=== PATIENT | female | born 1975 | race Caucasian/White ===

== ENCOUNTER → 2018-11-08 | Outpatient (CLI) | payer BC ==
[2018-11-08 10:14] LABS: African American GFR (CKD) >90 (>60 ml/min/1.73 sqM); Blood Urea Nitrogen 14 mg/dL (7-17)
--- NOTE | 2018-11-08 12:05 | CT ---
EXAMINATION TYPE: CT chest w con DATE OF EXAM: 11/08/2018 COMPARISON: None HISTORY: Productive cough and chest discomfort for months CT DLP: 201.8 mGycm Automated exposure control for dose reduction was used. CONTRAST: CT scan of the chest is performed with IV Contrast, patient injected with 100 mL of Isovue 300. FINDINGS: LUNGS: The lungs are grossly clear, there is no concerning parenchymal mass or nodule identified. So me mildly prominent interstitial changes are present towards the lung bases. There is some pleural li near bands, interlobular septal pleural thickening. There is no pleural effusion or pneumothorax seen . The tracheobronchial tree is patent. MEDIASTINUM: There is a retrocaval pretracheal lymph node with a short axis measurement of 13 mm whic h is enlarged by CT criteria, mild prominence of the right hilar node. No pericardial effusion is see n. AORTA: No additional significant abnormality is seen. OTHER: Dependent high density within the gallbladder compatible with stones.. IMPRESSION: Mild interstitial changes, mediastinal, hilar adenopathy. Cholelithiasis.
== END | disposition home or self-care (01) ==
LOC: RADCTMAIN 09:30
PROVIDERS: ATTEND Internal Medicine Rheumatology
DX: R59.0 Localized enlarged lymph nodes (principal); K80.20 Calculus of gallbladder without cholecystitis without obstruction; M05.19 Rheumatoid lung disease with rheumatoid arthritis of multiple sites; R05 Cough
CPT/HCPCS: 82565; 84520; 71260; 36415; Q9967